=== PATIENT | male | born 1960 | race Caucasian/White ===

== ENCOUNTER → 2017-06-22 16:18 | Outpatient (CLI) | payer OTHER, SELFPAY ==
--- NOTE | 2017-06-22 16:31 | CT_ITS ---
STUDY: CT CHEST WITHOUT CONTRAST REASON FOR EXAM: Male, 57 years old. Follow-up right upper lobe opacity RADIATION DOSAGE (If Supplied By Facility): CTDIvol = ( 9.48 ) mGy, DLP = ( 393.34 ) mGycm TECHNIQUE: Transaxial imaging of the chest was performed without intravenous contrast material. Sagittal and coronal reconstructions were performed. Individualized dose optimization techniques were used for this CT. COMPARISON: February 19, 2017 FINDINGS: There is minimal biapical scarring. The focal opacity in the anterior segment of the right upper lobe measures about 9 mm on series 4 image 72. This previously measured up to 2 cm in size. There is stable minimal scarring in the medial segment of the right middle lobe. There are no focal opacities in the left lung. There is no demonstrated pleural abnormality. The heart is normal in size. There are small lymph nodes scattered in the mediastinum. The hilar regions are unremarkable allowing for lack of contrast in the vessels. The pulmonary arteries are unremarkable. The thoracic aorta is within normal limits. The osseous structures are unremarkable. The gallbladder is contracted. There are no acute abnormalities in the upper abdomen. CT/Chest without Contrast IMPRESSION: There is marked decreased size of the focal opacity in the anterior segment of the right upper lobe, now measuring approximately 9 mm in size. Although limited without contrast, there appears to be resolution of the right hilar lymph nodes. There are no new findings in the lungs. There is no pleural effusion. Electronically Signed: Gerri Stevenson MD at 9:16 EDT Tel Direct: [phone], Service support ,
== END ==
PROVIDERS: Family Provider Family Medicine; PCP Family Medicine; Visit Provider Internal Medicine Pulmonary Disease
DX: B39.9 Histoplasmosis, unspecified (principal); R91.1 Solitary pulmonary nodule
CPT/HCPCS: 71250

== ENCOUNTER → 2017-09-27 10:59 | Outpatient (CLI) | payer OTHER, SELFPAY ==
--- NOTE | 2017-09-27 11:04 | RAD_ITS ---
STUDY: X-RAY CHEST REASON FOR EXAM: Male, 57 years old. Histoplasmosis TECHNIQUE: PA and lateral views of the chest. COMPARISON: March 16, 2017. FINDINGS: The lungs are clear and hyper expanded. There is no demonstrated pleural abnormality. Normal size heart. Normal mediastinum and agus. Normal visualized pulmonary arteries. Normal visualized aortic arch and descending thoracic aorta. Normal visualized thoracic spine. Normal visualized ribs, clavicles, and shoulders. There is no demonstrated abnormality of the visualized soft tissue structures of the upper abdomen. RAD/Chest PA and Lateral IMPRESSION: No focal infiltrate or edema. Electronically Signed: Mian Benavides MD at 15:05 EDT , Service support ,
== END ==
PROVIDERS: Family Provider Family Medicine; PCP Family Medicine; Visit Provider Internal Medicine Pulmonary Disease
DX: B39.9 Histoplasmosis, unspecified (principal)
CPT/HCPCS: 71046

== ENCOUNTER → 2019-05-12 16:06 | Outpatient (CLI) | payer OTHER, SELFPAY ==
[2019-05-12 17:52] LABS: Cholesterol 176 mg/dL (200); High Density Lipoprotein 58 mg/dL; PSA,Total - Annual Screen 0.36 ng/mL (0.00-4.00); Thyroid Stim Hormone (TSH) 0.79 uIU/mL (0.358-3.74); Triglycerides 105 mg/dL; Very Low Density Lipoprotein 21 mg/dL (5-40)
== END ==
PROVIDERS: PCP Family Medicine; Referring Provider Family Medicine; Visit Provider Family Medicine
DX: Z00.00 Encounter for general adult medical examination without abnormal findings (principal); Z12.5 Encounter for screening for malignant neoplasm of prostate
CPT/HCPCS: 36415; 80061; 84153; 84443; G0103

== ENCOUNTER 2019-07-02 14:57 | Emergency (ER) | payer OTHER, SELFPAY ==
[2019-07-02 14:58] VITALS: BP 110/69; PULSE 93; RESP 16; TEMP 37.7; O2SAT 97; BMI 21.8
--- NOTE | 2019-07-02 15:32 | ED.DCSUM_ITS ---
- ER Visit Summary Date of Service: 07/02/19 Chief Complaint: Nausea, vomiting, diarrhea History of Present Illness: The patient is a 59 M with nausea, vomiting, diarrhea that started today. He has abdominal cramping as well. He has been self quarantining because he recently traveled out of state. He has not had a cough or shortness of breath or chest pain, but he is having fevers. He is requesting stool testing for coronavirus Physical Examination: Afebrile and vital signs unremarkable. Alert and oriented. No acute distress. Moving comfortably without distress. Skin appears normal. No respiratory distress. Test Results: None performed Emergency Department Course and Treatment: I advised the patient that he is likely infected with coronavirus, but there are other causes of nausea, vomiting, diarrhea, and abdominal cramps. I talked about colitis, diverticulitis, and other GI pathologies. The patient was mostly concerned about coronavirus. He was requesting stool testing. I advised him that we c annot do stool testing at this facility. He would not be a candidate for coronavirus swabs if he is treated as an outpatient. Even if he was admitted his testing would take up to a week to return. He does not feel that he needs to be admitted and wanted to get tested today. He did not want any further evaluation and will be discharged home to continue quarantining. I advised him to call if he has any further questions. Treatment Plan: As above Disposition: Discharge Impression: Nausea, vomiting, diarrhea This note was generated with [employer] dictation software. It may contain incorrect words, spelling, and punctuation that were not noted in review of the chart prior to signing ED Disposition - Plan for ED Patient: Referrals: Minnie Francisco MD [Primary Care Provider] -
--- NOTE | 2019-07-02 15:36 | ED.DEP ---
ED Disposition - Plan for ED Patient: Instructions: VOMITING AND DIARRHEA, Nonspecific (Adult) Referrals: Minnie Francisco MD [Primary Care Provider] -
== END 2019-07-02 15:51 | disposition home or self-care (01) ==
LOC: ED 15:37
PROVIDERS: Emergency Provider Emergency Medicine; PCP Family Medicine
DX: R11.2 Nausea with vomiting, unspecified (principal); R19.7 Diarrhea, unspecified; R10.9 Unspecified abdominal pain; R50.9 Fever, unspecified
CPT/HCPCS: 99282

== ENCOUNTER → 2020-07-31 12:16 | Outpatient (CLI) | payer OTHER, SELFPAY ==
--- NOTE | 2020-07-31 12:23 | RAD_ITS ---
STUDY: X-RAY - LEFT SHOULDER REASON FOR EXAM: Male, 60 years old. Bilateral shoulder pain. TECHNIQUE: 2 view(s) of the shoulder on 4 images. COMPARISON: None. FINDINGS: Normal glenohumeral articulation. Normal acromioclavicular joint. Normal acromion. Normal humeral head and visualized proximal humerus. The soft tissue structures are unremarkable. Normal visualized pulmonary apex. RAD/Shoulder min 2 Views IMPRESSION: No abnormality of the left shoulder. Electronically Signed: Renard Wilson MD at 13:22 EDT , Service support ,
[2020-07-31 15:10] LABS: Absolute Neutrophil Count 2.7 X10^3/uL (2.0-7.7); Basophil# 0.08 X10^3/uL; Basophil% 1.4 % (0-1); Eosinophil# 0.21 X10^3/uL; Eosinophils% 3.7 % (0-5); Hematocrit 53.1 % (40-54); Hemoglobin 17.4 g/dL (13.0-16.5); Lymphocyte % 36.6 % (19-41); Mean Corp Hgb Conc 32.8 g/dL (32-36); Mean Corpuscular Hgb 31.6 pg (27.0-32.0); Mean Corpuscular Volume 96.4 fL (80-94); Mean Platelet Vol. 11.2 fl (6.2-12.0); Monocyte# 0.62 X10^3/uL; Monocyte% 10.8 % (0-10); NRBC Flagged by Analyzer 0 % (0-5); Neutrophil # 2.71 X10^3/uL (2.7-7.7); Neutrophil % 47.3 % (47-70); Platelet Count 237 K/mm3 (150-450); RBC Distribution Width CV 12.9 % (11.6-14.6); RBC Distribution Width SD 46.2 fl (35.1-43.9); Red Blood Count 5.51 M/mm3 (4.6-6.2); White Blood Count 5.7 K/mm3 (4.4-11.0)
[2020-07-31 15:42] LABS: ALB/GLOB Ratio 1.2 RATIO (0.9-2.4); AST(SGOT) 15 U/L (15-37); Alanine Aminotransfer ALT/SGPT 21 U/L (16-61); Albumin, Serum 3.8 g/dL (3.2-5.0); Alkaline Phosphatase 82 U/L (45-117); Anion Gap 1 (5-15); BUN 20 mg/dL (7-18); BUN/Creat Ratio 20.2 RATIO (10-20); Calcium,Total 8.8 mg/dL (8.5-10.1); Chloride 106 mmol/L (98-107); Creatinine, Serum 0.99 mg/dL (0.70-1.30); EST Glomerular Filtration Rate 82 mL/min (>60); Est Glom Filt Rate - Afr Amer 99 mL/min (>60); Globulin 3.1 g/dL (2.2-4.2); Glucose 102 mg/dL (74-106); Potassium 4.4 mmol/L (3.5-5.1); Protein, Total 6.9 g/dL (6.4-8.2); Sodium Level 140 mmol/L (136-145); Thyroid Stim Hormone (TSH) 0.91 uIU/mL (0.358-3.74)
== END ==
PROVIDERS: PCP Family Medicine; Referring Provider Family Medicine; Visit Provider Family Medicine
DX: M25.511 Pain in right shoulder (principal); M25.512 Pain in left shoulder; R53.83 Other fatigue
CPT/HCPCS: 36415; 73030; 80053; 84403; 84443; 85025

== ENCOUNTER 2020-08-16 12:00 | Outpatient (RCR) | payer OTHER, SELFPAY ==
--- NOTE | 2020-08-01 11:24 | HP.PTEVAL ---
Patient's Visit Information YAMILA BENNETT is a 60 year old M referred to Physical Therapy by Dr. Minnie Francisco MD with a diagnosis of L frozen shoulder. Date of Evaluation: 08/01/20 Physical Therapist: Isidro Guo DPT, OCS, CSCS - Visit Plan Frequency: 3x /Week Duration: 4-6 Weeks Plan: 3x/week for 3-6 weeks for. 1. MH and STM to L shoulder, grade 4 joint mobs L s-h joint, aggressive PROM to L shoulder. strength scapula and shoulder when improved. TENS adn ice if needed after. 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 6-8 weeks ago, without incident, movement in L shoulder up and back became painful. Can still do pushups and work in fron of him. Lying on floor to do superman with arms [place] or turn off alarm clock hurts at shoulder. reaching out to the side to catch ball can hurt 9/10 trasniently. Has tried heat and ice. L shoulder feels frozen. Wants to play hoops in a couple months without pain. 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 Not painful. If lies on L side can be tender in L shoulder. Sometimes sleeps on tummy. Driving not a problem. Dressing not a problem. Comfortable at rest. Has 3 yo grandosn and lifting him to shoulders can hurt arms. - Pain L shoulder Pain Intensity (Out of 10): 0 Pain Intensity Range: 0, 9 - Objective Walks and transfers I and easily. cervical aROM 60 ext adn 70 rotation without pain, full sB. scap mobility is good B but stays slightly anterior tipped B. elbow and wrist adn ahnd AROM and strength is good at 5/5. L shoulder A/PROM flexion 115,135 painful end and stiff. abduction 120/140, ext rotation 40/45, IR 50/55. R shoulder is 135 abd adn flexion, 60 ext rotationa dn 70 IR. all L side is limited by pain and firm endfeel, scapula starting to move instead of g-h. Tender to palpation over supra insert adn anterior joint capsule. - L drop arm, ext rotation lag test, sulcus test, - labral tests. - Goals Goal 1:: Pt have 145 flexiona dn abd and 60 ext rotation without pain to improve ability to lift grandchild Goal Time Frame: 4-6 Weeks Goal 2:: Patient ready to return to rebounding on basketball court without pain Goal Time Frame: 4-6 Weeks Goal 3:: I management of condition Goal Time Frame: 4-6 Weeks Goal 4:: Pt feel 90% back to normal with shoulders. Goal Time Frame: 4-6 Weeks Goal 5:: Quick DASH < 15 Goal Time Frame: 4-6 Weeks - Rehabilitation Potential Physical Therapy Diagnosis: L adhesive capsulitis Rehabilitation Potential: Fair - Anticipated Interventions Patient/Client Instruction: Educate patient on: Condition, Plan of Care For the Purpose of:: To decrease pain, To improve muscle performance and motor function, To increase tolerance to activity/condition/position, To improve ability of physical actions for home/community/work/leisure Therapeutic Exercise to Include: Strength training, Flexibilty training, Passive ROM, Active ROM, Scapular Strength/Stabilization For the Purpose of:: To decrease pain, To increase ROM, To improve muscle performance and motor function, To increase tolerance to activity/condition/position, To improve ability of physical actions for home/community/work/leisure Manual Therapy Techniques to Include: Petrissage, Mobilization, Soft tissue mobilization For the Purpose of:: To decrease pain, To increase ROM, To improve nutrient delivery to tissue Thank you for the opportunity to evaluate your patient. For Medicare and Medicare HMO plans, please review the plan of care and approve it. It will need to be FAXED BACK to us at [phone] for Medicare purposes. For Medicare only, by signing this I certify the plan of care. Please let me know if there are questions or concerns regarding this plan of care. Physician Signature: Date:
--- NOTE | 2020-11-05 11:45 | HP.PT.NRP ---
YAMILA BENNETT was seen in my office for initial evaluation on 08/01/20. The following Plan of Care was established for this patient: Initial Frequency: 3x /Week Initial Duration: 4-6 Weeks Patient/Client Instruction: Educate patient on: Condition, Plan of Care For the Purpose of:: To decrease pain, To improve muscle performance and motor function, To increase tolerance to activity/condition/position, To improve ability of physical actions for home/community/work/leisure Therapeutic Exercise to Include: Strength training, Flexibilty training, Passive ROM, Active ROM, Scapular Strength/Stabilization For the Purpose of:: To decrease pain, To increase ROM, To improve muscle performance and motor function, To increase tolerance to activity/condition/position, To improve ability of physical actions for home/community/work/leisure Manual Therapy Techniques to Include: Petrissage, Mobilization, Soft tissue mobilization For the Purpose of:: To decrease pain, To increase ROM, To improve nutrient delivery to tissue This patient was last seen in our office 08/16/20. Pertinent comments regarding their Physical therapy will appear below: Pt seen 7 visits of POC and seeme to be doing well. He neglected to schedule or attend any further visits. at this point, it has been over two months and I will discontinue due to nonattendance. At this point I will be discontinuing this patient from physical therapy. I would be happy to see this patient again in the future if found appropriate by the physician. Thank you! Isidro Guo, DPT, OCS, CSCS Balance/Gait/Functional tests - Balance/Special Test Scores Quick DASH Score: 25.0000
== END 2020-08-16 19:00 | disposition home or self-care (01) ==
LOC: PT 12:00
PROVIDERS: PCP Family Medicine; Referring Provider Family Medicine; Visit Provider Family Medicine
DX: M75.02 Adhesive capsulitis of left shoulder (principal)
CPT/HCPCS: 97110; 97140; 97161

== ENCOUNTER → 2020-11-29 10:43 | Outpatient (CLI) | payer OTHER, SELFPAY ==
--- NOTE | 2020-11-29 10:45 | RAD_ITS ---
STUDY: X-RAY CHEST REASON FOR EXAM: Male, 60 years old. Coughing TECHNIQUE: PA and lateral views of the chest. COMPARISON: 09/27/2017 FINDINGS: The lungs are clear and expanded. There is no demonstrated pleural abnormality. Normal size heart. Normal mediastinum and agus. Normal visualized pulmonary arteries. Normal visualized aortic arch and descending thoracic aorta. Normal visualized thoracic spine. Normal visualized ribs, clavicles, and shoulders. There is no demonstrated abnormality of the visualized soft tissue structures of the upper abdomen. RAD/Chest PA and Lateral IMPRESSION: Normal x-ray examination of the chest. Electronically Signed: Clarence Garcia MD at 7:56 EDT Tel , Service support ,
== END ==
PROVIDERS: PCP Family Medicine; Referring Provider Family Medicine; Visit Provider Family Medicine
DX: R05 Cough (principal)
CPT/HCPCS: 71046

== ENCOUNTER 2021-05-09 12:03 | Outpatient (CLI) | payer BC, SELFPAY | END 2021-05-09 23:59 | disposition short-term general hospital (02) | LOC: LABSPEC 12:04 | PROVIDERS: PCP Family Medicine; Visit Provider Physician Assistant | DX: Z11.52 Encounter for screening for COVID-19 (principal) | CPT/HCPCS: 87635; U0003; U0005 ==

== ENCOUNTER 2021-07-23 16:00 | Outpatient (RCR) | payer BC, SELFPAY ==
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
--- NOTE | 2021-09-25 15:31 | HP.PTDCSUM ---
It has been my pleasure to treat YAMILA BENNETT referred by Dr. Greg Mayes, ROSAM, with the diagnosis of L foot pain for a total of 2 visit(s). Discharge Date: Please see the following information for a summary of their discharge status. Subjective: ACHILLES IS SORE. PROVIDED CUSTOM ORTHOTICS Objective/Function: ORTHOTICS FELT GOOD AFTER ADJUSTMENTS Goal 1:: Pt will be fit for orthotics and educated on orthotic and skin care Plan: D/C If there are questions or concerns regarding this patient's physical therapy, please feel free to call me at [phone]. Thank you for the referral of this patient. Sincerely, Mumtaz Mcmahan, PT, ATC
== END 2021-07-23 19:00 | disposition home or self-care (01) ==
LOC: PT 16:00
PROVIDERS: PCP Family Medicine; Referring Provider Podiatrist; Visit Provider Podiatrist
DX: M76.62 Achilles tendinitis, left leg (principal)
CPT/HCPCS: 97161; 97760; 97763

== ENCOUNTER → 2021-11-21 | Outpatient (CLI) | payer BC, SELFPAY ==
[2021-11-21 15:35] LABS: PSA,Total - Annual Screen 0.42 ng/mL (0.00-4.00)
== END | disposition home or self-care (01) ==
LOC: MFPLAB 12:08
PROVIDERS: PCP Family Medicine; Referring Provider Family Medicine; Visit Provider Family Medicine
DX: Z12.5 Encounter for screening for malignant neoplasm of prostate (principal)
CPT/HCPCS: 36415; 84153; G0103

== ENCOUNTER → 2023-09-14 | Outpatient (CLI) | payer BC, SELFPAY ==
--- NOTE | 2023-09-14 12:52 | RAD_ITS ---
INDICATION: cough fever EXAMINATION/TECHNIQUE: X-RAY - XR Chest 2 Views COMPARISON: Prior study dated: 11/29/2020. FINDINGS: LINES/DEVICES: None. LUNGS: No consolidation, edema or effusion. No pneumothorax. MEDIASTINUM AND CARDIOVASCULAR STRUCTURES: Cardiac silhouette not enlarged. Central airways and mediastinal contour are unremarkable. BONES AND SOFT TISSUES: Unremarkable. RAD/Chest PA and Lateral IMPRESSION: No radiographic evidence of acute cardiopulmonary disease. Electronically Signed: Kamaljit Nicole MD at 16:01 EDT ,
[2023-09-14 13:10] LABS: QC Malaria Lot#/Exp Date RECORD LOT#/EXP DATE
[2023-09-14 15:52] LABS: Absolute Lymphocyte Count 1.51 X10^3/uL (0.83-4.51); Absolute Neutrophil Count 4.4 X10^3/uL (2.0-7.7); Basophil% 1.3 % (0-1); Eosinophil# 0.38 X10^3/uL; Eosinophils% 5.1 % (0-5); Hematocrit 50.3 % (40-54); Hemoglobin 17.3 g/dL (13.0-16.5); Lymphocyte # 1.51 X10^3/ul (0.83-4.51); Lymphocyte % 20.4 % (19-41); Mean Corp Hgb Conc 34.4 g/dL (32-36); Mean Corpuscular Hgb 32.4 pg (27.0-32.0); Mean Corpuscular Volume 94.2 fL (80-94); Mean Platelet Vol. 9.7 fl (6.2-12.0); Monocyte# 0.96 X10^3/uL; NRBC Flagged by Analyzer 0 % (0-5); Neutrophil # 4.35 X10^3/uL (2.7-7.7); Neutrophil % 58.7 % (47-70); Platelet Count 465 K/mm3 (150-450); RBC Distribution Width CV 13.2 % (11.6-14.6); RBC Distribution Width SD 45.6 fl (35.1-43.9); Red Blood Count 5.34 M/mm3 (4.6-6.2)
[2023-09-14 16:34] LABS: Erythrocyte Sedimentation Rate 34 mm/hr (0-20)
[2023-09-15 13:23] LABS: Pathologist Review Reviewed
[2023-09-16 08:00] LABS: White Blood Count 7.4 K/mm3 (4.4-11.0)
[2023-09-19 14:52] LABS: Malaria QC Review PASSED
== END | disposition home or self-care (01) ==
LOC: MTRAD 12:52 → MTLAB 12:54
PROVIDERS: PCP Family Medicine; Referring Provider Family Medicine; Visit Provider Family Medicine
DX: R50.9 Fever, unspecified (principal)
CPT/HCPCS: 36415; 71046; 85025; 85652; 87070; 87101; 87205; 87207

== ENCOUNTER 2023-09-17 14:28 | Emergency (ER) | payer BC, SELFPAY ==
[2023-09-17 14:29] VITALS: BP 118/85; PULSE 99; RESP 20; TEMP 37.3; O2SAT 99; BMI 20.6
[2023-09-17 14:31] VITALS: BP 102/73; PULSE 92; RESP 18; TEMP 37.1; O2SAT 98
--- NOTE | 2023-09-17 15:27 | EDS_ITS ---
HPI History of Present Illness Chief Complaint: Fever Detail of Chief Complaint: Patient symptoms started 2 weeks ago. Informant: patient Onset/Context/Timing Onset: Weeks (Illness started 2 weeks ago.) Context: Sudden Onset Timing: Intermittent and Waxes and wanes Quality: Viral-like symptoms with elevated temperature Location: Multiple organ systems Current Severity: Mild Maximum Severity: Mild Worsened by: Nothing specific Relieved by: Temperature returned to normal with Tylenol Associated Symptoms Associated Symptoms: Cough greater than 1 week and temperature to a Tmax of 100.0 past 6 to 7 da Narrative Narrative: Patient is a 63-year-old male. Patient recently was in [place]. He was there approximately 2 months ago. He was seen 2 weeks ago by his primary care physician. He was seen on the and had additional test done as well as a chest x-ray and a malaria screen. 2 weeks ago patient had Tmax of 102.0 ?F. At that time he had nausea vomiting diarrhea. He also complained of aches. He had 3 days of essentially minimal to no symptoms. He has not had any vomiting or diarrhea since the early onset of his illness. He does complain of some aches. He has had a rash. He states the rash is red blotchy on his extremities and torso. The rash is not painful. The rash is not raised. He now has a cough. His sputum is essentially clear. He is a non-smoker. He denies arthralgias or swelling of his joints. He initially had myalgias. He had rapid COVID influenza performed by Dr. Minnie Goode that was reportedly negative. I do not see the results for this test. Patient did have blood work on September 13 which revealed slightly elevated hemoglobin and indices are slightly elevated. Sed rate was slightly elevated at 34. This is normal when corrected for age. Prior similar symptoms: Yes Recent Illness/Hospitalization: Yes PFSH PFSH Home Medications ?Medication ?Instructions ?Recorded ?Last Taken ?Type No Known/Unobtainable [No Known 02/19/17 Unknown History Home Medications] Allergy/AdvReac Type Severity Reaction Status Date / Time No Known Allergies Allergy Verified 09/17/23 14:29 Social History (Updated 09/17/23 @ 15:[address] Pete Arevalo MD) household members: spouse Smoking Status: Never smoker ROS ROS ED Constitutional Constitutional ED: Reports chills, fever(s), subjective and sweats; Denies weight loss Eyes Eyes: Denies blurry vision, change in vision or diplopia ENT ENT ED: Denies ear pain, rhinorrhea or sore throat Cardiovascular Cardiovascular: Denies chest pain, orthopnea, palpitations, paroxysmal nocturnal dyspnea or racing heartbeat Respiratory/Chest Respiratory/Chest: Reports cough and sputum; Denies dyspnea, dyspnea on exertion, orthopnea or paroxysmal nocturnal dyspnea Gastrointestinal Gastrointestinal: Reports other Details: As documented in the HPI narrative he initially had nausea and vomiting diarrhea. He has not had nausea vomit diarrhea for the past 10 to 11 days. ; Denies abdominal pain, diarrhea, nausea or vomiting Genitourinary Genitourinary ED: Denies dysuria, hematuria or urinary frequency Musculoskeletal Musculoskeletal: Reports back pain and other Details: Complaint of back pain near the left scapular region. ; Denies arthralgias or neck pain Integumentary Reports rash; Denies abscess Neurologic Neurologic: Denies headache(s), paresthesias or weakness Endocrine Endocrinology: Denies cold intolerance or heat intolerance Hematologic/Lymphatic Hematologic/Lymphatic: Reports systems reviewed and no addt'l complaints, except as documented EXAM Physical Exam Const Vital Signs: 09/17/23 14:29 09/17/23 14:29 09/17/23 14:31 Temperature 99.1 F 99.1 F 98.8 F Temperature Source Oral Oral Oral Pulse Rate 99 99 92 Respiratory Rate 20 H 20 H 18 Respiratory Effort Respiratory Depth Respiratory Pattern Blood Pressure 118/85 H 118/85 H 102/73 Blood Pressure Mean 96 96 82 Pulse Ox 99 99 98 Oxygen Delivery Method Room Air Room Air Room Air 09/17/23 15:04 09/17/23 15:29 09/17/23 15:31 Temperature 98.8 F Temperature Source Oral Pulse Rate 91 91 Respiratory Rate 16 16 Respiratory Effort Normal Non-Labored Respiratory Depth Normal Respiratory Pattern Normal Blood Pressure 116/84 H 116/84 H Blood Pressure Mean 94 94 Pulse Ox 98 98 Oxygen Delivery Method Room Air Room Air 09/17/23 16:00 09/17/23 16:00 Temperature 98.7 F Temperature Source Oral Pulse Rate 86 81 Respiratory Rate 16 16 Respiratory Effort Respiratory Depth Respiratory Pattern Blood Pressure 122/74 H 122/74 H Blood Pressure Mean 90 90 Pulse Ox 98 98 Oxygen Delivery Method Room Air Room Air Positive well nourished and well developed General Appearance ED: well developed and NAD; Negative for cyanotic, diaphoretic or pallor HEENT Reports moist mucous membranes HEENT Narrative: Head is atraumatic normocephalic. Ears normal. Nares patent. Eyes PERRL and EOMs intact bilaterally General Eye ED: Negative for pale conjunctiva or scleral icterus Neck no lymphadenopathy, supple and no JVD Chest Wall palpation of chest normal; Negative for inspection of chest normal Chest Narrative: There is erythematous blotchy rash. The rash blanches. The rash is not warm. There is no induration. Resp normal respiratory effort and clear to auscultation bilaterally Cardio regular rate, regular rhythm, S1 normal heart sound, S2 normal heart sound and no murmurs GI normal to inspection, nondistended, normoactive bowel sounds, non-tender and non-distended; Negative for hepatosplenomegaly Extremity Negative for normal to inspection Extremity Narrative: Blotchy rash upper and lower extremity as noted on chest. Neuro oriented x3, CN's II-XII intact bilaterally and no sensory deficits noted Sensorium / Orientation: alert Motor Exam: strength 5/5 throughout Psych mental status grossly normal Skin No no rashes or lesions noted, no wounds and skin turgor normal General Skin Exam: elasticity normal; Negative for jaundice or pallor MDM MDM MDM Narrative Medical decision making narrative: This could represent a viral illness. This could represent a tropical infection. With him having predominantly respiratory symptoms at this time we will repeat chest x-ray because now he has pain in the left scapular region. Even though 1 was done 4 days ago pneumonia may not appear on x-ray for 4 to 6 days. His labs obtained by Dr. Francisco were reviewed. In my opinion they are not significant. Lab Data Attestation: I reviewed the patient's lab results. Lab results narrative: CBC is unremarkable. Comprehensive metabolic panel is normal. Labs: Laboratory Results - last 24 hr 09/17/23 15:46 WBC 9.4 RBC 5.17 Hgb 16.4 Hct 48.7 MCV 94.2 H MCH 31.7 MCHC 33.7 RDW Std Deviation 45.9 H RDW Coeff of Dalia 13.2 Plt Count 432 MPV 8.8 Immature Gran % (Auto) 0.600 Neut % (Auto) 64.4 Lymph % (Auto) 22.5 Gregg % (Auto) 9.7 Eos % (Auto) 2.1 Baso % (Auto) 0.7 Absolute Neuts (auto) 6.1 Absolute Lymphs (auto) 2.12 Nucleated RBC % 0 Sodium 135 L Potassium 4.4 Chloride 104 Carbon Dioxide 26.0 Anion Gap 5 BUN 18 Creatinine 1.08 Estim Creat Clear Calc 71.20 Est GFR (MDRD) Af Amer 88 Est GFR (MDRD) Non-Af 73 BUN/Creatinine Ratio 16.7 Glucose 106 Calcium 8.8 Total Bilirubin 0.30 AST 13 L ALT 21 Alkaline Phosphatase 76 Total Protein 7.1 Albumin 3.0 L Globulin 4.1 Albumin/Globulin Ratio 0.7 L Radiography Chest X-Ray - ED: 2 View, Read by ED Physician (Independently reviewed interpreted by me as negative. Cardiac silhouette size normal. Lung parenchyma normal. Hilum is normal. Osseous structures are unremarkable.), Unchanged, Normal, Heart, Lungs, Mediastinum and Bony Structures Diagnostic Testing: Clinical Impression(s) from Imaging Studies Chest X-Ray 09/17/23 15:50 IMPRESSION: No radiographic evidence of acute cardiopulmonary disease. Electronically Signed: Qasim De La Cruz DO at 16:06 EDT Reading Location ID and State: [facility] / [place] Tel [phone], Service support , Discharge Plan Triage Chief Complaint: Fever Other Complaint: Shortness of Breath ED Provider: Pete Arevalo Dx/Rx/DC Orders Clinical Impression: Upper respiratory infection with cough and congestion, Erythematous rash Instructions: ED URI, Viral, No Abx (Adult) Prescriptions: No Action No Known Home Medications Primary Care Provider: Minnie Francisco Referrals: Minnie Francisco MD [Primary Care Provider] - 10-14 Days if not better Print Language: Vietnamese Disposition Disposition: Home, Self Care
[2023-09-17 15:29] VITALS: BP 116/84; PULSE 91; RESP 16; O2SAT 98
[2023-09-17 15:31] VITALS: BP 116/84; PULSE 91; RESP 16; TEMP 37.1; O2SAT 98
--- NOTE | 2023-09-17 15:50 | RAD_ITS ---
INDICATION: Fever, cough x 1 week EXAMINATION/TECHNIQUE: X-RAY - XR Chest 2 Views COMPARISON: September 14, 2023 FINDINGS: LINES/DEVICES: None. LUNGS: No consolidation, edema or effusion. No pneumothorax. MEDIASTINUM AND CARDIOVASCULAR STRUCTURES: Cardiac silhouette not enlarged. Central airways and mediastinal contour are unremarkable. BONES AND SOFT TISSUES: Unremarkable. RAD/Chest PA and Lateral IMPRESSION: No radiographic evidence of acute cardiopulmonary disease. Electronically Signed: Qasim De La Cruz DO at 16:06 EDT ,
[2023-09-17 15:55] LABS: Absolute Lymphocyte Count 2.12 X10^3/uL (0.83-4.51); Absolute Neutrophil Count 6.1 X10^3/uL (2.0-7.7); Basophil# 0.07 X10^3/uL; Basophil% 0.7 % (0-1); Eosinophils% 2.1 % (0-5); Hematocrit 48.7 % (40-54); Hemoglobin 16.4 g/dL (13.0-16.5); Lymphocyte # 2.12 X10^3/ul (0.83-4.51); Lymphocyte % 22.5 % (19-41); Mean Corp Hgb Conc 33.7 g/dL (32-36); Mean Corpuscular Hgb 31.7 pg (27.0-32.0); Mean Corpuscular Volume 94.2 fL (80-94); Mean Platelet Vol. 8.8 fl (6.2-12.0); Monocyte# 0.92 X10^3/uL; Monocyte% 9.7 % (0-10); NRBC Flagged by Analyzer 0 % (0-5); Neutrophil # 6.07 X10^3/uL (2.7-7.7); Neutrophil % 64.4 % (47-70); Platelet Count 432 K/mm3 (150-450); RBC Distribution Width CV 13.2 % (11.6-14.6); RBC Distribution Width SD 45.9 fl (35.1-43.9); Red Blood Count 5.17 M/mm3 (4.6-6.2); White Blood Count 9.4 K/mm3 (4.4-11.0)
[2023-09-17 15:57] LABS: POSITIVE COUNT NO; POSITIVE DIFFERENTIAL NO; POSITIVE MORPHOLOGY NO
[2023-09-17 16:00] VITALS: BP 122/74; PULSE 81; PULSE 86; RESP 16; TEMP 37.1; O2SAT 98
[2023-09-17 16:23] LABS: ALB/GLOB Ratio 0.7 RATIO (0.9-2.4); AST(SGOT) 13 U/L (15-37); Alanine Aminotransfer ALT/SGPT 21 U/L (16-61); Alkaline Phosphatase 76 U/L (45-117); Anion Gap 5 (5-15); BUN 18 mg/dL (7-18); BUN/Creat Ratio 16.7 RATIO (10-20); Calcium,Total 8.8 mg/dL (8.5-10.1); Chloride 104 mmol/L (98-107); Creatinine, Serum 1.08 mg/dL (0.70-1.30); EST Glomerular Filtration Rate 73 mL/min (>60); Est Glom Filt Rate - Afr Amer 88 mL/min (>60); Globulin 4.1 g/dL (2.2-4.2); Glucose 106 mg/dL (74-106); Potassium 4.4 mmol/L (3.5-5.1); Protein, Total 7.1 g/dL (6.4-8.2); Sodium Level 135 mmol/L (136-145)
[2023-09-17 16:53] VITALS: BP 134/78; PULSE 78; RESP 16; TEMP 37.2; O2SAT 97
== END 2023-09-17 16:59 | disposition home or self-care (01) ==
PROVIDERS: Emergency Provider Emergency Medicine; PCP Family Medicine; Visit Provider Emergency Medicine
DX: J06.9 Acute upper respiratory infection, unspecified (principal); R21 Rash and other nonspecific skin eruption; R05.9 Cough, unspecified
CPT/HCPCS: 71046; 80053; 85025; 99284; A4216

== ENCOUNTER → 2025-02-07 | Outpatient (CLI) | payer BC, SELFPAY ==
--- NOTE | 2025-02-07 10:50 | RAD_ITS ---
PROCEDURE: CHEST PA AND LATERAL 02/07/2025 REASON FOR EXAM: FLU- LIKE SYMPTOMS TECHNIQUE: Procedure Code: RADCXR Modality: DX Procedure: CHEST PA AND LATERAL COMPARISON: None. RAD/Chest PA and Lateral IMPRESSION: Lungs are moderately severely hyperinflated, with probable associated chronic l dean changes seen in the bases. No focal infiltrate is seen. No pleural effusion or pneumothorax is noted. The cardiomediastinal silhouette is within the normal range for age and techniq ue. Mild thoracic spine degenerative changes are noted. No evidence of acute cardiopulmonary disease. Chronic lung changes are present . Reading Location: [place] [id number]
== END | disposition home or self-care (01) ==
LOC: MTRAD 10:47
PROVIDERS: PCP Internal Medicine; Referring Provider Internal Medicine; Visit Provider Internal Medicine
DX: R68.89 Other general symptoms and signs (principal)
CPT/HCPCS: 71046